=== PATIENT | male | born 1955 | race Caucasian/White ===

== ENCOUNTER 2019-11-15 14:51 | Outpatient (CLI) | payer MEDICARE, SELFPAY ==
[2019-11-15 16:45] LABS: LDL Cholesterol Direct 93 mg/dL
[2019-11-15 17:03] LABS: Alanine Aminotransferase 26 U/L (4-50); Albumin Level 4.1 g/dL (3.5-5.1); Alkaline Phosphatase 116 U/L (38-126); Aspartate Amino Transferase 23 U/L (17-59); Bilirubin,Total 0.3 mg/dL (0.2-1.3); Blood Urea Nitrogen 21 mg/dL (9-20); Calcium 9.5 mg/dL (8.4-10.2); Carbon Dioxide 23 mmol/L (22-30); Chloride 90 mmol/L (98-107); Cholesterol 204 mg/dL (0-200); Estimated Glomerular Filt Rate > 60; Glucose 526 mg/dL (75-110); HDL Direct 25 mg/dL; Potassium 5.5 mmol/L (3.4-5.0); Sodium 132 mmol/L (137-145)
[2019-11-15 17:05] LABS: Prostate Specific Antigen 1.7 ng/mL (< OR = 4.0)
[2019-11-15 17:28] LABS: Triglycerides 637 mg/dL (<150)
== END 2019-11-15 14:52 | disposition home or self-care (01) ==
LOC: ANHWCLAB 14:55
PROVIDERS: PCP Internal Medicine; Visit Provider Internal Medicine
DX: E78.2 Mixed hyperlipidemia (principal); I10 Essential (primary) hypertension; Z12.5 Encounter for screening for malignant neoplasm of prostate; Z79.899 Other long term (current) drug therapy
CPT/HCPCS: 36415; 80053; 80061; 84153; G0103

== ENCOUNTER 2020-03-18 09:50 | Outpatient (CLI) | payer MEDICARE, SELFPAY ==
[2020-03-18 10:33] LABS: Hemoglobin A1C 13.3 % (<5.7)
[2020-03-18 10:36] LABS: Alanine Aminotransferase 31 U/L (4-50); Albumin Level 4.1 g/dL (3.5-5.1); Alkaline Phosphatase 105 U/L (38-126); Aspartate Amino Transferase 28 U/L (17-59); Bilirubin,Total 0.4 mg/dL (0.2-1.3); Blood Urea Nitrogen 14 mg/dL (9-20); Calcium 8.7 mg/dL (8.4-10.2); Carbon Dioxide 28 mmol/L (22-30); Chloride 95 mmol/L (98-107); Cholesterol 149 mg/dL (0-200); Estimated Glomerular Filt Rate > 60; Glucose 341 mg/dL (75-110); HDL Direct 32 mg/dL; Potassium 4.5 mmol/L (3.4-5.0); Sodium 132 mmol/L (137-145); Triglycerides 240 mg/dL (<150)
[2020-03-18 10:48] LABS: LDL Cholesterol Direct 82 mg/dL
[2020-03-18 11:04] LABS: Prostate Specific Antigen 1.7 ng/mL (< OR = 4.0)
[2020-03-18 11:32] LABS: Creatinine Urine 71.9 mg/dL
[2020-03-18 11:38] LABS: MALB Creatinine Ratio 82.2 mg/g (0-30); Microalbumin Urine Random 59.1 mg/L (0-16.7)
== END 2020-03-18 09:51 | disposition home or self-care (01) ==
PROVIDERS: PCP Internal Medicine; Visit Provider Nurse Practitioner
DX: E11.9 Type 2 diabetes mellitus without complications (principal); E78.5 Hyperlipidemia, unspecified; Z12.5 Encounter for screening for malignant neoplasm of prostate
CPT/HCPCS: 36415; 80053; 80061; 82043; 83036; 84153; G0103

== ENCOUNTER 2020-09-18 13:12 | Outpatient (CLI) | payer MEDICARE, SELFPAY ==
[2020-09-18 14:17] LABS: Alanine Aminotransferase 41 U/L (4-50); Albumin Level 4.2 g/dL (3.5-5.1); Alkaline Phosphatase 106 U/L (38-126); Anion Gap 7 mmol/L (8-16); Aspartate Amino Transferase 45 U/L (17-59); Bilirubin,Total 0.5 mg/dL (0.2-1.3); Blood Urea Nitrogen 17 mg/dL (9-20); Calcium 9.3 mg/dL (8.4-10.2); Carbon Dioxide 31 mmol/L (22-30); Chloride 97 mmol/L (98-107); Cholesterol 186 mg/dL (0-200); Estimated Glomerular Filt Rate > 60; Glucose 386 mg/dL (75-110); HDL Direct 29 mg/dL; Potassium 4.9 mmol/L (3.4-5.0); Sodium 135 mmol/L (137-145); Triglycerides 314 mg/dL (<150)
[2020-09-18 14:29] LABS: LDL Cholesterol Direct 115 mg/dL
== END 2020-09-18 13:13 | disposition home or self-care (01) ==
LOC: ANHLAB 13:16
PROVIDERS: PCP Internal Medicine; Visit Provider Internal Medicine
DX: E11.65 Type 2 diabetes mellitus with hyperglycemia (principal); Z79.4 Long term (current) use of insulin; I10 Essential (primary) hypertension; E78.5 Hyperlipidemia, unspecified
CPT/HCPCS: 36415; 80053; 80061

== ENCOUNTER 2021-02-08 15:27 | Emergency (ER) | payer MEDICARE, SELFPAY ==
--- NOTE | ~2021-02-08 | CT_ITS ---
EXAMINATION: CT abdomen pelvis w con DATE: 02/08/2021 18:19 INDICATION: Right upper quadrant abdominal pain TECHNIQUE: Computed tomography (CT) of the abdomen and pelvis was performed with 100 mL Omnipaque-350 intravenous contrast. Automated exposure control and iterative reconstruction technique were employe d. The dose-length product was 1456.73 mGy-cm. COMPARISON: 01/13/2015 FINDINGS: A few small calcified nodules in the right lower lobe consistent with old granulomatous disease. Hear t size is normal. No pericardial or pleural effusion. Edematous wall thickening the distal esophagus consistent with esophagitis. Small calcified gallstone at the dependent aspect of the normal-appearin g gallbladder. Liver, spleen, pancreas, bilateral adrenal glands and kidneys are normal. 2 mm nonobst ructing stone at the lower pole of the right kidney. There is mild scattered colonic diverticulosis w ithout adjacent inflammatory change to suggest diverticulitis. Small bowel and appendix are normal. M arked prostatomegaly. Bladder is normal. No free intraperitoneal gas or fluid. Small fat-containing u mbilical and bilateral inguinal hernias. No pathologically enlarged abdominal or pelvic lymphadenopat hy. Mild scattered degenerative skeletal changes. IMPRESSION: 1. Mild wall thickening in the distal esophagus consistent with esophagitis which could be due to ref lux or other infectious or inflammatory etiologies. 2. Cholelithiasis. 3. Nonobstructing 2 mm right renal cyst. 4. Mild diverticulosis. 5. Small fat-containing umbilical and bilateral inguinal hernias. Reviewed, dictated and finalized at location A. IMPRESSION: 1. Mild wall thickening in the distal esophagus consistent with esophagitis whi ch could be due to reflux or other infectious or inflammatory etiologies. 2. Cholelithiasis. 3. Nonobstructing 2 mm right renal cyst. 4. Mild diverticulosis. 5. Small fat-containing umbilical and bilateral inguinal hernias.
[2021-02-08 15:28] VITALS: BP 175/68; PULSE 87; RESP 17; TEMP 36.3; O2SAT 97
[2021-02-08 16:11] LABS: Basophils Absolute Auto 0.1 K/mm3 (0.0-0.1); Basophils Percent Auto 0.8 % (0.2-1.2); Eosinophils Absolute Auto 0.3 K/mm3 (0-0.3); Eosinophils Percent Auto 3.9 % (0-4.4); Hematocrit 40.1 % (42.0-52.0); Hemoglobin 13.4 g/dL (14.0-18.0); Immature Granulocyte Percent A 1.3 % (0-0.5); Lymphocytes Absolute Auto 1.11 K/mm3 (0.9-3.2); Lymphocytes Percent Auto 14.5 % (18.3-44.2); Mean Corpuscular HGB Conc 33.4 g/dl (32-36); Mean Corpuscular Hemoglobin 32.1 pg (26-34); Mean Corpuscular Volume 95.9 fl (80-100); Mean Platelet Volume 9.7 fl (7.4-10.4); Monocytes Absolute Auto 0.5 K/mm3 (0.1-0.6); Monocytes Percent Auto 6.8 % (2.6-8.5); Neutrophils Absolute Auto 5.6 K/mm3 (1.3-6.7); Neutrophils Percent Auto 72.7 % (45.5-73.1); Platelet Count Result 194 k/mm3 (150-375); Red Blood Count 4.18 M/mm3 (4.6-6.20); Red Cell Distribution Width 14.4 % (11.5-14.5); White Blood Count 7.7 K/mm3 (4.5-10.0)
[2021-02-08 16:14] LABS: Add Urine Microscopic? YES; Appearance Urine Clear (Clear); Bilirubin Urine Negative (Negative); Blood Urine Negative (Negative); Color Urine Straw (Yellow); Glucose Urine UA 3+ mg/dL (Negative); Ketones Urine Negative (Negative); Leukocyte Esterase Ur Negative LEU/UL (Negative); Nitrate Urine Negative (Negative); Protein Urine Negative (Negative); RBC Urine 0-2 /hpf (0-2); Specific Grav Ur 1.024 (1.001-1.035); Squamous Epithelial Cell Urine Rare /hpf (Few); Urobilinogen Urine Negative mg/dL (<2.0); WBC Urine 0-3 /hpf
[2021-02-08 16:20] LABS: Alanine Aminotransferase 26 U/L (4-50); Albumin Level 4.3 g/dL (3.5-5.1); Alkaline Phosphatase 139 U/L (38-126); Anion Gap 4 mmol/L (8-16); Aspartate Amino Transferase 29 U/L (17-59); Bilirubin,Total 0.3 mg/dL (0.2-1.3); Blood Urea Nitrogen 18 mg/dL (9-20); Calcium 9.6 mg/dL (8.4-10.2); Carbon Dioxide 31 mmol/L (22-30); Chloride 97 mmol/L (98-107); Estimated CRCL calculation 102 ml/min; Estimated Glomerular Filt Rate > 60; Glucose 378 mg/dL (75-110); Lipase 90 U/L (23-300); Potassium 4.5 mmol/L (3.4-5.0); Sodium 132 mmol/L (137-145)
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
[2021-02-08 17:37] LABS: Beta-Hydroxybutyrate/Acetoacetate 0.24 mmol/L (0.02-0.27)
[2021-02-08 17:40] VITALS: BP 158/71; PULSE 72; RESP 18; TEMP 36.7; O2SAT 95
[2021-02-08] MEDS: MORPHINE SULFATE (*CRX) 4 MG/ML INJ IV PUSH (17:43)
[2021-02-08] MEDS: SODIUM CHLORIDE 0.9% IV 1,000 ML 999 ML IV CONT (17:43)
[2021-02-08] MEDS: INSULIN HUMAN REGULAR (*BKC) 100 UNITS/ML 8 UNITS SUB-Q (17:47)
[2021-02-08 18:34] VITALS: BP 136/71; PULSE 67; RESP 18; TEMP 36.4; O2SAT 95
[2021-02-08 19:00] VITALS: O2SAT 94
[2021-02-08 19:11] VITALS: BP 154/70; O2SAT 96
[2021-02-08 19:41] LABS: Glucose Point of Care 226 (65-105)
== END 2021-02-08 20:17 | disposition home or self-care (01) ==
PROVIDERS: Emergency Medicine; Emergency Provider Nurse Practitioner; PCP Internal Medicine
DX: N28.1 Cyst of kidney, acquired (principal); E11.9 Type 2 diabetes mellitus without complications; K57.90 Diverticulosis of intestine, part unspecified, without perforation or abscess without bleeding; K80.20 Calculus of gallbladder without cholecystitis without obstruction; K42.9 Umbilical hernia without obstruction or gangrene; K40.20 Bilateral inguinal hernia, without obstruction or gangrene, not specified as recurrent; E78.5 Hyperlipidemia, unspecified; I10 Essential (primary) hypertension; G47.33 Obstructive sleep apnea (adult) (pediatric); J45.909 Unspecified asthma, uncomplicated; Z79.4 Long term (current) use of insulin; Z79.82 Long term (current) use of aspirin
CPT/HCPCS: 36415; 74177; 80053; 81001; 82010; 82948; 83690; 85025; 96361; 96372; 96374; 99284; J1815; J2270; J7030; Q9967

== ENCOUNTER 2021-02-25 08:42 | Outpatient (CLI) | payer MEDICARE, SELFPAY ==
[2021-02-25 09:11] LABS: Basophils Absolute Auto 0.1 K/mm3 (0.0-0.1); Eosinophils Absolute Auto 0.5 K/mm3 (0-0.3); Eosinophils Percent Auto 6.2 % (0-4.4); Hematocrit 39.3 % (42.0-52.0); Hemoglobin 12.8 g/dL (14.0-18.0); Immature Granulocyte Absolute 0.13 K/mm3 (0.00-0.031); Immature Granulocyte Percent A 1.5 % (0-0.5); Lymphocytes Absolute Auto 1.41 K/mm3 (0.9-3.2); Lymphocytes Percent Auto 16.8 % (18.3-44.2); Mean Corpuscular HGB Conc 32.6 g/dl (32-36); Mean Corpuscular Hemoglobin 31.8 pg (26-34); Mean Corpuscular Volume 97.5 fl (80-100); Mean Platelet Volume 9.1 fl (7.4-10.4); Monocytes Absolute Auto 0.7 K/mm3 (0.1-0.6); Monocytes Percent Auto 8.3 % (2.6-8.5); Neutrophils Absolute Auto 5.6 K/mm3 (1.3-6.7); Neutrophils Percent Auto 66.2 % (45.5-73.1); Platelet Count Result 186 k/mm3 (150-375); Red Blood Count 4.03 M/mm3 (4.6-6.20); Red Cell Distribution Width 14.5 % (11.5-14.5); White Blood Count 8.4 K/mm3 (4.5-10.0)
[2021-02-25 09:20] LABS: Alanine Aminotransferase 28 U/L (4-50); Albumin Level 4.2 g/dL (3.5-5.1); Alkaline Phosphatase 83 U/L (38-126); Anion Gap 8 mmol/L (8-16); Aspartate Amino Transferase 41 U/L (17-59); Bilirubin,Total 0.3 mg/dL (0.2-1.3); Blood Urea Nitrogen 18 mg/dL (9-20); Calcium 9.8 mg/dL (8.4-10.2); Carbon Dioxide 32 mmol/L (22-30); Chloride 98 mmol/L (98-107); Estimated Glomerular Filt Rate > 60; Glucose 160 mg/dL (75-110); Lipase 67 U/L (23-300); Sodium 138 mmol/L (137-145)
[2021-02-28 17:03] LABS: H pylori Ag Stool Not Detected (Not Detected)
== END 2021-02-25 08:43 | disposition home or self-care (01) ==
PROVIDERS: PCP Internal Medicine; Visit Provider Surgery
DX: K80.20 Calculus of gallbladder without cholecystitis without obstruction (principal)
CPT/HCPCS: 36415; 80053; 83690; 85025; 87338

== ENCOUNTER → 2021-02-27 09:33 | Outpatient (CLI) | payer MEDICARE, SELFPAY ==
--- NOTE | ~2021-02-27 | US_ITS ---
US abdomen limited DATE: 02/27/2021 09:58 INDICATION: Right upper quadrant abdominal pain TECHNIQUE: Real-time imaging of liver, pancreas, gallbladder areas COMPARISON: 02/08/2021 CT abdomen pelvis FINDINGS: There is limited visualization of the pancreas due to interference from bowel gas. No hepatic space-occupying mass lesion is evident. Normal hepatopedal portal venous flow direction. Small mobile dependent filling defects of the gallbladder consistent with cholelithiasis. Negative so nographic Noriega's sign. The common bile duct measures 4 mm, normal. IMPRESSION: Cholelithiasis Reviewed, dictated and finalized at [facility]. Reviewed, dictated and finalized at location B. IMPRESSION: Cholelithiasis
== END ==
PROVIDERS: PCP Internal Medicine; Visit Provider Surgery
DX: R10.11 Right upper quadrant pain (principal); K80.20 Calculus of gallbladder without cholecystitis without obstruction
CPT/HCPCS: 76705

== ENCOUNTER 2021-03-17 14:40 | Outpatient (CLI) | payer MEDICARE, SELFPAY ==
[2021-03-21 03:54] LABS: Fructosamine 260 umol/L (205-285)
== END 2021-03-17 14:41 | disposition home or self-care (01) ==
PROVIDERS: PCP Internal Medicine; Visit Provider Internal Medicine Endocrinology, Diabetes & Metabolism
DX: E11.9 Type 2 diabetes mellitus without complications (principal)
CPT/HCPCS: 36415; 82985

== ENCOUNTER 2021-03-28 10:30 | Outpatient (CLI) | payer MEDICARE, SELFPAY ==
[2021-03-28 12:54] LABS: LDL Cholesterol Direct 63 mg/dL
[2021-03-28 13:02] LABS: Alanine Aminotransferase 25 U/L (4-50); Albumin Level 4.7 g/dL (3.5-5.1); Alkaline Phosphatase 75 U/L (38-126); Anion Gap 13 mmol/L (8-16); Aspartate Amino Transferase 35 U/L (17-59); Bilirubin,Total 0.5 mg/dL (0.2-1.3); Blood Urea Nitrogen 17 mg/dL (9-20); Calcium 10.1 mg/dL (8.4-10.2); Carbon Dioxide 28 mmol/L (22-30); Chloride 102 mmol/L (98-107); Cholesterol 134 mg/dL (0-200); Estimated Glomerular Filt Rate > 60; Glucose 39 mg/dL (75-110); HDL Direct 38 mg/dL; Sodium 143 mmol/L (137-145); Triglycerides 71 mg/dL (<150)
[2021-03-28 13:13] LABS: Prostate Specific Antigen 1.8 ng/mL (< OR = 4.0)
== END 2021-03-28 10:31 | disposition home or self-care (01) ==
LOC: ANHLAB 10:34
PROVIDERS: PCP Internal Medicine; Visit Provider Internal Medicine
DX: E11.65 Type 2 diabetes mellitus with hyperglycemia (principal); Z79.4 Long term (current) use of insulin; I10 Essential (primary) hypertension; E78.5 Hyperlipidemia, unspecified; Z12.5 Encounter for screening for malignant neoplasm of prostate
CPT/HCPCS: 36415; 80053; 80061; 84153; G0103

== ENCOUNTER 2021-04-03 08:04 | Outpatient (CLI) | payer MEDICARE, SELFPAY ==
--- NOTE | ~2021-04-03 | NM_ITS ---
EXAMINATION: NM brigette stress w perfusion DATE: 04/03/2021 10:29 CDT INDICATION: Preop examination. History of diabetes with hyperglycemia and obesity. TECHNIQUE: Rest images were obtained following intravenous administration of 11.4 mCi Tc99m tetrofosm in (Myoview). The patient was infused intravenously with Lexiscan (regadenoson). Then, 33.3 mCi Tc99m tetrofosmin (Myoview) was administered intravenously, and stress images were obtained. Data was ceasar nstructed into short axis and horizontal and vertical long axis SPECT images. Gated SPECT images were also obtained. COMPARISON: None. FINDINGS: There is no definite reversible or fixed perfusion abnormality to suggest ischemia or infar ction. There is no segmental wall motion abnormality. Left ventricular ejection fraction measures 6 9%. IMPRESSION: 1. No definite ischemia or infarct. 2. Normal left ventricular ejection fraction measuring 69%. Reviewed, dictated and finalized at location B.
--- NOTE | 2021-04-03 08:09 | EST_ITS ---
Patient Info Name: Karan Flores Age: 65 years : 1955 Gender: Male Ht: 69 in Wt: 325 lbs BSA: 2.76 m2 Exam Date: 04/03/2021 9:20 AM Exam Location: [facility] Stress Patient Status: Outpatient Admit Date: 04/03/2021 Staff Ordering Physician: Mani Bush DO Attending Provider: Mani Bush DO Exercise Technologist: Ingrid Coello RDCS Exercise Physician: Lm Kirkland DO Exam Type: CA stress brigette w NM Study Info Indications E11.65 - Type 2 diabetes mellitus with hyperglycemia A regadenoson stress test was performed. Summary 1. 1. Negative lexiscan stress test for ischemic ST changes by ECG criteria. 2. 2. Stable hemodynamics throughout the test. 3. 3. Nuclear scan to follow and will be reported separately. Please correlate with it. 4. 4. Patient informed of the above results. Protocol: Lexiscan Stress ECG Details Stage: REST Duration (min): 3 min : 5 sec HR (bpm): 72 SBP (mmHg): 139 DBP (mmHg): 63 Stage: REST Duration (min): 5 min : 15 sec HR (bpm): 72 SBP (mmHg): 139 DBP (mmHg): 63 Stage: STAGE 1 Duration (min): 0 min : 59 sec HR (bpm): 91 SBP (mmHg): 132 DBP (mmHg): 63 Stage: RECOVERY Duration (min): 1 min : 0 sec HR (bpm): 90 SBP (mmHg): 137 DBP (mmHg): 49 Stage: RECOVERY Duration (min): 2 min : 0 sec HR (bpm): 83 SBP (mmHg): 137 DBP (mmHg): 49 Stage: RECOVERY Duration (min): 3 min : 0 sec HR (bpm): 87 SBP (mmHg): 144 DBP (mmHg): 54 Stage: RECOVERY Duration (min): 3 min : 4 sec HR (bpm): 87 SBP (mmHg): 144 DBP (mmHg): 54 Rest HR: 72 bpm Peak HR: 96 bpm Rest Sys BP: 139 mmHg Peak Sys BP: 144 mmHg Max Pred HR: 155 bpm % Max Pred HR: 62 % Target HR: 132 bpm Max RPP: 13,824 bpm*mmHg Termination Reason: Completed protocol Cardiac Symptoms: Shortness of breath, Nausea Total Time: 1 min : [address] BP: [address] BP: 54 mmHg Total Dose: 0.4 mg Resting ECG Sinus rhythm, IRBBB. Stress ECG No ST changes. Arrhythmias None. Report Signatures
== END 2021-04-03 08:05 | disposition home or self-care (01) ==
PROVIDERS: PCP Internal Medicine; Visit Provider Internal Medicine
DX: E11.65 Type 2 diabetes mellitus with hyperglycemia (principal); I10 Essential (primary) hypertension; Z79.4 Long term (current) use of insulin; Z01.810 Encounter for preprocedural cardiovascular examination
CPT/HCPCS: 78452; 93017; A9502; J2785

== ENCOUNTER 2021-04-21 16:36 | Outpatient (CLI) | payer MEDICARE, SELFPAY ==
[2021-04-21 17:40] LABS: Alanine Aminotransferase 30 U/L (4-50); Albumin Level 4.5 g/dL (3.5-5.1); Alkaline Phosphatase 84 U/L (38-126); Amylase 63 U/L (30-110); Anion Gap 10 mmol/L (8-16); Aspartate Amino Transferase 40 U/L (17-59); Bilirubin,Total 0.4 mg/dL (0.2-1.3); Blood Urea Nitrogen 15 mg/dL (9-20); Calcium 9.7 mg/dL (8.4-10.2); Carbon Dioxide 28 mmol/L (22-30); Chloride 100 mmol/L (98-107); Estimated Glomerular Filt Rate > 60; Glucose 195 mg/dL (75-110); Lipase 98 U/L (23-300); Potassium 4.7 mmol/L (3.4-5.0); Sodium 138 mmol/L (137-145)
== END 2021-04-21 16:37 | disposition home or self-care (01) ==
LOC: ANHLAB 16:43
PROVIDERS: PCP Internal Medicine; Visit Provider Surgery
DX: K80.20 Calculus of gallbladder without cholecystitis without obstruction (principal); Z01.818 Encounter for other preprocedural examination
CPT/HCPCS: 36415; 80053; 82150; 82248; 83690

== ENCOUNTER 2021-04-23 01:32 | Day surgery (SDC) | payer MEDICARE, SELFPAY ==
[2021-04-21 12:57] VITALS: BMI 46.5
[2021-04-23] VITALS (11 sets, daily range): BP systolic 123–152; BP diastolic 49–88; PULSE 69–79; RESP 18–20; TEMP 36.6; O2SAT 92–98
[2021-04-23] MEDS: LACTATED RINGERS 1,000 ML 30 ML IV CONT ×2 (11:40→15:00)
[2021-04-23] MEDS: KETOROLAC 15 MG/ML VIAL (*BKC) IV PUSH (11:51)
--- NOTE | 2021-04-23 11:54 | WPDANESEPPF ---
Anes - Initial Pre Proc Eval Procedure: Operation Date: 04/23/21 12:00 Proposed Procedures p Laparoscopic Cholecystectomy, Possible Intra Operative Cholangiogram, Possible Open - Yamil Adan MD Date/Time: 04/23/21 11:54 Surgeon: Yamil Adan MD Pre Op Diagnosis: cholelithiasis Patient Data Age: 65 Gender: M Height: 1.75 m Weight: 143 kg Allergies Allergy/AdvReac Type Severity Reaction Status Date / Time amoxicillin [From Augmentin] Allergy Mild Hives Verified 04/23/21 10:39 clavulanic acid Allergy Mild Hives Verified 04/23/21 10:39 [From Augmentin] ramipril [From Altace] Allergy Mild Hives Verified 04/23/21 10:39 Home Medications Medication Instructions Recorded Confirmed Type aspirin 325 mg tablet 325 mg PO DAILY 11/19/19 04/21/21 History fexofenadine-pseudoephedrine ER 1 tablet PO PRN PRN 11/19/19 04/23/21 History 180 mg-240 mg tablet,ext.release 24 hr magnesium oxide 400 mg (241.3 mg 400 mg PO DAILY 11/19/19 04/21/21 History magnesium) tablet multivitamin 1 tablet PO DAILY 11/19/19 04/21/21 History albuterol sulfate 90 mcg/actuation 2 inhalation INHALATION Q4-6H PRN 11/26/19 04/23/21 History aerosol inhaler gm cetirizine 10 mg capsule 10 mg PO DAILY 11/26/19 04/21/21 History omega-3 fatty acids-fish oil 360 2 cap PO BID cap 11/26/19 04/21/21 History mg-1,200 mg capsule potassium gluconate 595 mg (99 mg) 595 mg PO BID tablet 11/26/19 04/21/21 History tablet calcium carbonate 600 mg (1,500 1 tablet PO BID 12/27/19 04/21/21 History mg)-vitamin D3 200 unit tablet blood sugar diagnostic #400 each 08/04/20 03/31/21 Rx blood-glucose meter #1 ea 08/04/20 03/31/21 History insulin lispro 100 unit/mL See Rx Instructions .ROUTE .COMPLEX 08/04/20 04/21/21 History subcutaneous solution insulin syringe-needle U-100 0.5 #400 ea 08/04/20 03/31/21 Rx mL 31 gauge x 5/16 insulin syringe-needle U-100 1 mL #10 each 08/04/20 03/31/21 History 31 gauge x 02/22 metformin 1,000 mg tablet See Rx Instructions .ROUTE 09/16/20 04/21/21 Rx .COMPLEX #180 tablet omeprazole 40 mg capsule,delayed See Rx Instructions .ROUTE 09/16/20 04/21/21 Rx release .COMPLEX #90 cap lisinopril 10 mg tablet 10 mg PO DAILY #90 tablet 01/12/21 04/21/21 Rx meclizine 25 mg tablet See Rx Instructions .ROUTE 01/12/21 04/23/21 Rx .COMPLEX #90 tablet mecobalamin-levomefolate 1 tablet PO BID #60 tablet 01/13/21 04/21/21 Rx calcium-pyridoxal phos 3 mg-35 mg-2 mg tablet acetaminophen 300 mg-codeine 60 mg 1 tablet PO QSHIFT PRN 02/18/21 04/23/21 History tablet atorvastatin 80 mg tablet 40 mg PO DAILY tablet 02/18/21 04/21/21 History naproxen 250 mg tablet 250 mg PO BID PRN 03/31/21 04/23/21 History diazepam 2 mg tablet 2 mg PO QID #120 tablet 04/20/21 04/23/21 Rx insulin degludec [Tresiba U-100 75 unit SUB-Q QPM 04/21/21 04/23/21 History Insulin] Patient hx anesthesia problems: none Family hx anesthesia problems: none PMFSH Past Medical History Medical History (Updated 03/31/21 @ 09:36 by Milo Adan APRN) Chronic low back pain History of blood transfusion 1977 Hyperlipidemia Hypertension Kidney stones CHITRA on CPAP Stroke 16yrs ago Type 2 diabetes mellitus without complications Surgical History Surgical History (Updated 02/18/21 @ 14:54 by Nely Anthony CMA) H/O exploratory laparotomy H/O left inguinal hernia repair History of nephrolithotomy with removal of calculi Family History Family History (Updated 02/18/21 @ 14:55 by Nely Anthony CMA) Father Family history of diabetes mellitus in first degree relative Family history of heart disease in male family member before age 55 Cerebrovascular accident Mother Family history of emphysema Sibling Diabetes mellitus Hypertension Cerebrovascular accident Depression Grandparent Diabetes mellitus Other Cancer Other Asthma Family history of arthritis Family history of blood dyscrasia F
[2021-04-23 12:01] LABS: Glucose Point of Care 104 mg/dl (65-105)
--- NOTE | 2021-04-23 12:14 | WPDHPUPDATE1 ---
History and Physical Update Update Date/Time: 04/23/21 12:14 History and Physical has been reviewed, including an updated exam of the patient. There are changes in the patient's condition. Pt had a cardiac stress test that showed no ischemic changes. Risks, benefits, and alternatives have been discussed and questions answered. Patient agrees to proceed with procedure.
[2021-04-23] MEDS: ceFAZolin 3 GM/D5W 100 ML 100 ML IVPB (12:27)
[2021-04-23] MEDS: BUPIVACAINE/EPINEPHRINE 0.5% 30 ML VIAL INFILTRATE (12:57)
--- NOTE | 2021-04-23 15:22 | W.PM.PROC2 ---
Procedure Note - Detailed Date of Procedure 04/23/21 Pre-op Diagnosis cholelithiasis Post-op Diagnosis same Procedure Performed Laproscopic Cholecystectomy Surgeon Yamil Adan MD Cloth Washer Operator Amee ALMEIDA.OR first assistant Anesthesia general Indications Patient has had longstanding cholelithiasis but now in view of his diabetes and some symptoms it was recommended that he consider having cholecystectomy. Findings A long distended gallbladder without signs of inflammation. There were significant omental adhesions starting a [address] down from the top of his gallbladder all the way to the triangle of Calot. Description of Procedure Patient was seen preoperatively in the holding area and risks, benefits and alternatives confirmed. Patient was taken to the operating room and general anesthesia was induced. A time out was then preformed with the surgery team confirming patient and site of surgery. The abdomen was prepped and draped in the usual sterile fashion. Incision was made just above the umbilicus with an 11 blade knife. I placed 2 stay sutures of O- Vicryl on either side of the mid-line fascia beneath the umbilicus and was then able to slide in the Clay cannula through the fascial defect into the peritoneum. First under low flow and then under high flow the abdomen was insufflated with carbon dioxide never exceeding a pressure of 14. Three 5 mm trocars were then introduced under direct vision. The following trocars were introduced under direct vision: a 5 mm in the epigastrium and two 5 mm trocars along the right costal margin laterally in the subcostal area. There were significant omental adhesions to the underside of the gallbladder. These were taken down with blunt and sharp dissection using some Bovie cautery for hemostasis. We were able to dissect this completely away from the neck of the gallbladder. I did get a small hole in the GB wall at about the junction of the top 3rd and the other 2/3 rd's of the gallbladder. We moved our retracting grasper to this site to keep the bile from leaking from the gallbladder through the rest of the case. This seemed to work well as we dissected out the gallbladder and the triangle of Calot. I then carefully used the L-shaped cautery and the [place] dissector to dissect out the triangle of Calot. I then I was able to dissect out both the cystic duct and cystic artery and identify a window of safety. The gall bladder was grasped and the cystic duct and artery were dissected free and clipped with an 5 mm endo-clip recording engineer. The cystic duct and artery were clipped with use of 2 clips on the patient's side 1 on the gallbladder side utilizing a 5 mm endoclip-recording engineer. The cystic duct was then transected. The cystic artery was also transected at this point. The gall bladder was removed using electrocautery and then removed from the abdomen using an endobag. If we replaced the trocar at the umbilicus site checked for hemostasis again and when this was assured and we suctioned away all the fluid around the liver I decided to use a 1. Vicryl to close the fascia at the umbilical level trocar site using a Mark Sherman cone. Therefore, we placed the Mark Sherman cone after removing the Clay cannula at the umbilical site. Watching from the 5 mm trocars in the upper abdomen we then carefully passed the #1. Vicryl with a suture Passer and I pulled this up and tied it. All retracting to tie this I could see that we could see the fascia at the level of the supraumbilical area and so then I placed another #1 Vicryl suture externally as noted below. The 5 mm trocars were removed visualizing hemostasis and the remaining gas evacuated. The large trocar site at the umbilicus was closed with use of the 2 stay sutures of 0 Vicryl mentioned above and also a simple # 1-Vicryl suture at the supraumbilical site. The 2 stay sutures mentioned above on either side of the fascia were also tied together to help appr
[2021-04-23 15:34] LABS: Glucose Point of Care 170 mg/dl (65-105)
[2021-04-23] MEDS: diphenhydrAMINE HCl INJ 50 MG/ML VIAL 25 MG IV PUSH (15:41)
[2021-04-23] MEDS: SCOPOLAMINE 1.5 MG PATCH TRANSDERM (15:42)
== END 2021-04-23 18:08 | disposition home or self-care (01) ==
PROVIDERS: PCP Internal Medicine; Visit Provider Surgery
PROC: 0FT44ZZ Resection of Gallbladder, Percutaneous Endoscopic Approach (ICD-10-PCS; CPT 47562; principal; 2021-04-23 12:00)
DX: K80.20 Calculus of gallbladder without cholecystitis without obstruction (principal); E11.9 Type 2 diabetes mellitus without complications; I10 Essential (primary) hypertension; E78.5 Hyperlipidemia, unspecified; G47.33 Obstructive sleep apnea (adult) (pediatric); Z86.73 Personal history of transient ischemic attack (TIA), and cerebral infarction without residual deficits; Z87.891 Personal history of nicotine dependence; E66.01 Morbid (severe) obesity due to excess calories; Z68.42 Body mass index [BMI] 45.0-49.9, adult; Z79.82 Long term (current) use of aspirin; Z79.51 Long term (current) use of inhaled steroids; Z79.4 Long term (current) use of insulin; Z79.84 Long term (current) use of oral hypoglycemic drugs
CPT/HCPCS: 47562; 36415; 78452; 80053; 82150; 82248; 82948; 83690; 88304; 93017; A9270; A9502; J0330; J0690; J1100; J1170; J1200; J1885; J2704; J2710; J2785; J3010; J7120

== ENCOUNTER 2021-06-23 17:10 | Emergency (ER) | payer MEDICARE, SELFPAY ==
--- NOTE | ~2021-06-23 | XR_ITS ---
XR wrist LT min 3V DATE: 06/23/2021 17:38 INDICATION: Left lateral wrist pain for 2 weeks, of uncertain etiology TECHNIQUE: 4 views COMPARISON: None FINDINGS: No fracture or dislocation, periosteal reaction or bone destruction, chondrocalcinosis or e rosive change is evident. Small benign-appearing cysts of the carpal bones. IMPRESSION: No acute abnormality Reviewed, dictated and finalized at location A. IMPRESSION: No acute abnormality
[2021-06-23 17:21] VITALS: BP 143/57; PULSE 77; RESP 16; TEMP 36.8; O2SAT 97
--- NOTE | 2021-06-23 17:52 | ED.UPPEXIN ---
HPI - Extremity Injury (Upper) General Chief Complaint: Extremity Injury, Upper Stated Complaint: Left wrist Pain Time Seen by Provider: 06/23/21 17:50 Source: patient and RN notes reviewed Mode of arrival: ambulatory Limitations: no limitations History of Present Illness HPI narrative: 65-year-old male presents to the [facility] with complaints of left wrist pain. States has been going on for a couple of days. Had been applying an Owen wrap along with a salve. Took some ibuprofen today with minimal to no relief. States he went to balance himself the other day and stand up when he felt a pop in the radial aspect left wrist. No bruising or swelling noted. Pain with movement. No snuffbox tenderness Related Data Home Medications Medication Instructions Recorded Confirmed aspirin 325 mg tablet 325 mg PO DAILY 11/19/19 06/23/21 fexofenadine-pseudoephedrine ER 1 tablet PO PRN PRN 11/19/19 06/23/21 180 mg-240 mg tablet,ext.release 24 hr magnesium oxide 400 mg (241.3 mg 400 mg PO DAILY 11/19/19 06/23/21 magnesium) tablet multivitamin 1 tablet PO DAILY 11/19/19 06/23/21 albuterol sulfate 90 mcg/actuation 2 inhalation INHALATION Q4-6H PRN 11/26/19 06/23/21 aerosol inhaler gm cetirizine 10 mg capsule 10 mg PO DAILY 11/26/19 06/23/21 omega-3 fatty acids-fish oil 360 2 cap PO BID cap 11/26/19 06/23/21 mg-1,200 mg capsule potassium gluconate 595 mg (99 mg) 595 mg PO BID tablet 11/26/19 06/23/21 tablet calcium carbonate 600 mg (1,500 1 tablet PO BID 12/27/19 06/23/21 mg)-vitamin D3 200 unit tablet blood-glucose meter #1 ea 08/04/20 06/23/21 insulin lispro 100 unit/mL See Rx Instructions .ROUTE .COMPLEX 08/04/20 06/23/21 subcutaneous solution atorvastatin 80 mg tablet 40 mg PO DAILY tablet 02/18/21 06/23/21 Tresiba U-100 Insulin 75 unit SUB-Q QPM 04/21/21 06/23/21 Allergies Allergy/AdvReac Type Severity Reaction Status Date / Time amoxicillin [From Augmentin] Allergy Mild Hives Verified 06/23/21 17:48 clavulanic acid Allergy Mild Hives Verified 06/23/21 17:48 [From Augmentin] ramipril [From Altace] Allergy Mild Hives Verified 06/23/21 17:48 Review of Systems Review of Systems: All systems reviewed & are unremarkable except as noted in HPI and below Constitutional: Constitutional: Reports no additional constitutional complaints Eyes: Eyes: Reports no additional eye complaints ENT: Reports system reviewed and no additional complaints, except as documented Cardiovascular: Cardiovascular: Reports no additional cardiovascular complaints Respiratory: Respiratory: Reports no additional respiratory complaints Musculoskeletal: Musculoskeletal: Reports as per HPI and Reports arthralgias (Left wrist) Integumentary/Breasts: Skin/Breast: Reports system reviewed and no additional complaints, except as docu Neurologic: Reports system reviewed and no additional complaints, except as documented Psychiatric: Psychiatric: Reports no additional psychiatric complaints Allergic/Immunologic: Allergic/Immunologic: Reports no additional allergic/immunologic complaints PMFSH Past Medical History Medical History Chronic low back pain History of blood transfusion 1977 Hyperlipidemia Hypertension Kidney stones CHITRA on CPAP Stroke 16yrs ago Type 2 diabetes mellitus without complications Surgical History Surgical History H/O exploratory laparotomy H/O left inguinal hernia repair History of nephrolithotomy with removal of calculi Family History Family History Father Family history of diabetes mellitus in first degree relative Family history of heart disease in male family member before age 55 Cerebrovascular accident Mother Family history of emphysema Sibling Diabetes mellitus Hypertension Cerebrovascular accident Depression Grandparent Diabetes mellitu
== END 2021-06-23 18:25 | disposition home or self-care (01) ==
PROVIDERS: Emergency Provider Nurse Practitioner; PCP Internal Medicine
DX: M25.532 Pain in left wrist (principal); F17.290 Nicotine dependence, other tobacco product, uncomplicated; E78.5 Hyperlipidemia, unspecified; I10 Essential (primary) hypertension; G47.33 Obstructive sleep apnea (adult) (pediatric); E11.9 Type 2 diabetes mellitus without complications; Z86.73 Personal history of transient ischemic attack (TIA), and cerebral infarction without residual deficits
CPT/HCPCS: 73110; 99213; G0463

== ENCOUNTER → 2021-07-02 09:59 | Outpatient (REF) | payer MEDICARE, SELFPAY | LOC: ANHLAB 09:59 | PROVIDERS: PCP Internal Medicine; Visit Provider Nurse Practitioner | DX: C44.611 Basal cell carcinoma of skin of unspecified upper limb, including shoulder (principal) | CPT/HCPCS: 88305 ==

== ENCOUNTER → 2021-08-31 10:37 | Outpatient (REF) | payer MEDICARE, SELFPAY | LOC: ANHLAB 10:37 | PROVIDERS: PCP Internal Medicine; Visit Provider Nurse Practitioner | DX: C44.612 Basal cell carcinoma of skin of right upper limb, including shoulder (principal) | CPT/HCPCS: 88305; 88331 ==

== ENCOUNTER 2021-09-24 18:44 | Emergency (ER) | payer MEDICARE, SELFPAY ==
--- NOTE | ~2021-09-24 | XR_ITS ---
EXAMINATION: XR chest 2V 09/24/2021 19:23 INDICATION: Cough PROCEDURE: 2 view chest COMPARISON: 12/16/2011 FINDINGS: The lungs are clear. The cardiomediastinal silhouette is within normal limits. There are no pleural effusions. There is no pneumothorax suspected. IMPRESSION: 1: NO ACUTE CARDIOPULMONARY DISEASE. Reviewed, dictated and finalized at location A. NOMY SUPERVISOR
[2021-09-24 18:55] VITALS: BP 155/61; PULSE 78; RESP 16; TEMP 36.6; O2SAT 98
--- NOTE | 2021-09-24 19:27 | ED.GENADULT ---
HPI - General Adult General Chief complaint: Upper Respiratory Infection Stated complaint: Cough Source: patient Mode of arrival: ambulatory Limitations: no limitations History of Present Illness HPI narrative: Patient is a 65-year-old male who presents to the urgent care via POV for evaluation of a dry cough that began 4 days ago. Additionally, he reports myalgias, sleep difficulty, and fatigue. He also reports a throbbing rib cage . He also states that his cough is a wrenching cough to the point of heaving . No relief with Delsym or Tussionex. Denies alleviating factors. He states his cough worsens everything . He is vaccinated against Covid and also received Covid booster. He is also vaccinated against influenza. History of bronchitis. Last episode of bronchitis was 1980s. Denies present tobacco use. He states he smoked cigarettes in the past although quit 48 years ago. Related Data Home Medications Medication Instructions Recorded Confirmed aspirin 325 mg tablet 325 mg PO DAILY 11/19/19 06/23/21 fexofenadine-pseudoephedrine ER 1 tablet PO PRN PRN 11/19/19 06/23/21 180 mg-240 mg tablet,ext.release 24 hr magnesium oxide 400 mg (241.3 mg 400 mg PO DAILY 11/19/19 06/23/21 magnesium) tablet multivitamin 1 tablet PO DAILY 11/19/19 06/23/21 albuterol sulfate 90 mcg/actuation 2 inhalation INHALATION Q4-6H PRN 11/26/19 06/23/21 aerosol inhaler gm cetirizine 10 mg capsule 10 mg PO DAILY 11/26/19 06/23/21 omega-3 fatty acids-fish oil 360 2 cap PO BID cap 11/26/19 06/23/21 mg-1,200 mg capsule potassium gluconate 595 mg (99 mg) 595 mg PO BID tablet 11/26/19 06/23/21 tablet calcium carbonate 600 mg-vitamin 1 tablet PO BID 12/27/19 06/23/21 D3 5 mcg (200 unit) tablet blood-glucose meter #1 ea 08/04/20 06/23/21 Allergies Allergy/AdvReac Type Severity Reaction Status Date / Time amoxicillin [From Augmentin] Allergy Mild Hives Verified 09/24/21 19:06 clavulanic acid Allergy Mild Hives Verified 09/24/21 19:06 [From Augmentin] ramipril [From Altace] Allergy Mild Hives Verified 09/24/21 19:06 Review of Systems Review of Systems: Denies history of COPD, asthma, and pneumonia. Pertinent negatives: fever, sweats, chills, change in appetite, skin color changes, headache, nasal congestion/discharge, dizziness, lymphadenopathy, sinus problems, ear pain/drainage, chest pain, heart murmurs, heart palpitations, shortness of breath, wheezing, cyanosis, hemoptysis, hoarseness, orthopnea, pleuritic pain, nausea, vomiting, diarrhea. [facility] Past Medical History Medical History Chronic low back pain History of blood transfusion 1977 Hyperlipidemia Hypertension Kidney stones CHITRA on CPAP Stroke 16yrs ago Type 2 diabetes mellitus without complications Surgical History Surgical History H/O exploratory laparotomy H/O left inguinal hernia repair History of nephrolithotomy with removal of calculi Family History Family History Father Family history of diabetes mellitus in first degree relative Family history of heart disease in male family member before age 55 Cerebrovascular accident Mother Family history of emphysema Sibling Diabetes mellitus Hypertension Cerebrovascular accident Depression Grandparent Diabetes mellitus Other Cancer Other Asthma Family history of arthritis Family history of blood dyscrasia Family history of cardiovascular disease Family history of cataracts Family history of congestive heart failure Family history of coronary artery disease Family history of hepatitis Family history of mental disorder Family history of migraine headaches Family history of obesity Family history of osteoarthritis Social History Social History (Reviewed 09/24/21 @ 19:32 by Les Mckee
== END 2021-09-24 20:00 | disposition home or self-care (01) ==
PROVIDERS: Emergency Provider Nurse Practitioner Family; PCP Internal Medicine
DX: J06.9 Acute upper respiratory infection, unspecified (principal); E78.5 Hyperlipidemia, unspecified; I10 Essential (primary) hypertension; E11.9 Type 2 diabetes mellitus without complications; Z87.891 Personal history of nicotine dependence; Z79.82 Long term (current) use of aspirin; Z20.822 Contact with and (suspected) exposure to COVID-19
CPT/HCPCS: 71046; 87426; 87804; 99213; C9803; G0463

== ENCOUNTER 2021-10-08 10:54 | Outpatient (CLI) | payer MEDICARE, SELFPAY ==
[2021-10-08 11:51] LABS: Alanine Aminotransferase 32 U/L (4-50); Albumin Level 4.4 g/dL (3.5-5.1); Alkaline Phosphatase 101 U/L (38-126); Anion Gap 9 mmol/L (8-16); Aspartate Amino Transferase 36 U/L (17-59); Bilirubin,Total 0.4 mg/dL (0.2-1.3); Blood Urea Nitrogen 15 mg/dL (9-20); Calcium 9.4 mg/dL (8.4-10.2); Carbon Dioxide 28 mmol/L (22-30); Chloride 99 mmol/L (98-107); Cholesterol 160 mg/dL (0-200); Estimated Glomerular Filt Rate > 60; Glucose 178 mg/dL (65-110); HDL Direct 29 mg/dL; Potassium 4.7 mmol/L (3.4-5.0); Sodium 136 mmol/L (137-145); Triglycerides 156 mg/dL (<150)
[2021-10-08 12:02] LABS: LDL Cholesterol Direct 98 mg/dL
[2021-10-08 12:21] LABS: Prostate Specific Antigen 2.6 ng/mL (< OR = 4.0)
== END 2021-10-08 10:55 | disposition home or self-care (01) ==
LOC: ANHLAB 10:58
PROVIDERS: PCP Internal Medicine; Visit Provider Internal Medicine
DX: E11.65 Type 2 diabetes mellitus with hyperglycemia (principal); Z79.4 Long term (current) use of insulin; I10 Essential (primary) hypertension; Z12.5 Encounter for screening for malignant neoplasm of prostate; E78.5 Hyperlipidemia, unspecified
CPT/HCPCS: 36415; 80053; 80061; 84153; G0103

== ENCOUNTER → 2021-10-14 03:23 | Outpatient (CLI) | payer MEDICARE, SELFPAY ==
[2021-10-15 06:32] LABS: Influenza Control Positive
[2021-10-15 20:56] LABS: SARS-CoV-2 RNA PCR Negative
== END ==
PROVIDERS: PCP Internal Medicine; Visit Provider Internal Medicine
DX: R68.89 Other general symptoms and signs (principal); J06.9 Acute upper respiratory infection, unspecified; Z20.822 Contact with and (suspected) exposure to COVID-19
CPT/HCPCS: 87804; C9803; U0003; U0005

== ENCOUNTER 2022-04-13 10:03 | Outpatient (CLI) | payer MEDICARE, SELFPAY ==
[2022-04-13 10:43] LABS: Alanine Aminotransferase 49 U/L (6-50); Albumin Level 4.5 g/dL (3.5-5.1); Alkaline Phosphatase 89 U/L (38-126); Anion Gap 10 mmol/L (8-16); Aspartate Amino Transferase 40 U/L (17-59); Bilirubin,Total 0.4 mg/dL (0.2-1.3); Blood Urea Nitrogen 18 mg/dL (9-20); Calcium 9.4 mg/dL (8.4-10.2); Carbon Dioxide 30 mmol/L (22-30); Chloride 98 mmol/L (98-107); Cholesterol 159 mg/dL (0-200); Estimated Glomerular Filt Rate > 60; Glucose 168 mg/dL (65-110); HDL Direct 31 mg/dL; Potassium 4.4 mmol/L (3.4-5.0); Sodium 138 mmol/L (137-145); Triglycerides 192 mg/dL (<150)
[2022-04-13 10:55] LABS: LDL Cholesterol Direct 91 mg/dL
[2022-04-13 11:05] LABS: Creatinine Urine 186.7 mg/dL
[2022-04-13 11:48] LABS: MALB Creatinine Ratio 274.8 mg/g (0-30)
== END 2022-04-13 10:04 | disposition home or self-care (01) ==
PROVIDERS: PCP Internal Medicine; Visit Provider Nurse Practitioner Family
DX: E11.65 Type 2 diabetes mellitus with hyperglycemia (principal); I10 Essential (primary) hypertension; E78.5 Hyperlipidemia, unspecified; Z79.4 Long term (current) use of insulin
CPT/HCPCS: 36415; 80053; 80061; 82043

== ENCOUNTER 2022-07-27 10:00 | Outpatient (NON) | payer MEDICARE, SELFPAY | END 2022-07-27 10:01 | disposition home or self-care (01) | LOC: ANHLAB 07-28 11:46 | PROVIDERS: PCP Internal Medicine; Visit Provider Nurse Practitioner | DX: C44.319 Basal cell carcinoma of skin of other parts of face (principal) | CPT/HCPCS: 88305 ==

== ENCOUNTER 2022-08-23 12:42 | Outpatient (NON) | payer MEDICARE, SELFPAY | END 2022-08-23 12:43 | disposition home or self-care (01) | LOC: ANHLAB 12:42 | PROVIDERS: PCP Internal Medicine; Referring Provider Nurse Practitioner; Visit Provider Nurse Practitioner | DX: C44.319 Basal cell carcinoma of skin of other parts of face (principal) | CPT/HCPCS: 88305; 88331 ==

== ENCOUNTER 2022-11-02 09:01 | Outpatient (CLI) | payer MEDICARE, SELFPAY ==
[2022-11-02 10:55] LABS: Alanine Aminotransferase 37 U/L (6-50); Alkaline Phosphatase 113 U/L (38-126); Anion Gap 9 mmol/L (8-16); Aspartate Amino Transferase 36 U/L (17-59); Bilirubin,Total 0.7 mg/dL (0.2-1.3); Blood Urea Nitrogen 18 mg/dL (9-20); Calcium 8.3 mg/dL (8.4-10.2); Carbon Dioxide 25 mmol/L (22-30); Chloride 100 mmol/L (98-107); Cholesterol 133 mg/dL (0-200); Estimated Glomerular Filt Rate > 60; Glucose 217 mg/dL (65-110); HDL Direct 30 mg/dL; Potassium 4.7 mmol/L (3.4-5.0); Sodium 134 mmol/L (137-145); Triglycerides 118 mg/dL (<150)
[2022-11-02 11:06] LABS: LDL Cholesterol Direct 71 mg/dL
[2022-11-02 11:25] LABS: Prostate Specific Antigen 2.7 ng/mL (< OR = 4.0)
== END 2022-11-02 09:02 | disposition home or self-care (01) ==
LOC: ANHLAB 09:03
PROVIDERS: PCP Internal Medicine; Visit Provider Internal Medicine
DX: E78.5 Hyperlipidemia, unspecified (principal); E11.9 Type 2 diabetes mellitus without complications; I10 Essential (primary) hypertension; Z12.5 Encounter for screening for malignant neoplasm of prostate
CPT/HCPCS: 36415; 80053; 80061; 84153; G0103

== ENCOUNTER 2022-11-08 11:22 | Outpatient (CLI) | payer MEDICARE, SELFPAY ==
--- NOTE | ~2022-11-08 | XR_ITS ---
EXAMINATION: XR shoulder RT min 2V DATE: 11/08/2022 11:54 INDICATION: Right shoulder pain and difficulty moving TECHNIQUE: AP internally and externally rotated, AP oblique externally rotated and transscapular Y vi ews of the right shoulder were obtained. COMPARISON: 01/12/2016 FINDINGS: Normal alignment. No fracture. No significant change in mild glenohumeral and acromioclavicular oste oarthritis. Small marginal osteophytes along the inferior glenoid. Soft tissues are unremarkable. Vis ual is portions of the right upper lung are clear. IMPRESSION: No significant change in mild right glenohumeral and acromioclavicular osteoarthritis. Reviewed, dictated and finalized at location A. OOD SCARFER TENDER IMPRESSION: No significant change in mild right glenohumeral and acromioclavicular osteoart hritis.
== END 2022-11-08 11:23 | disposition home or self-care (01) ==
PROVIDERS: PCP Internal Medicine; Visit Provider Internal Medicine
DX: M19.011 Primary osteoarthritis, right shoulder (principal); S46.919A Strain of unspecified muscle, fascia and tendon at shoulder and upper arm level, unspecified arm, initial encounter; X58.XXXA Exposure to other specified factors, initial encounter
CPT/HCPCS: 73030

== ENCOUNTER 2023-01-03 13:21 | Emergency (ER) | payer MEDICARE, SELFPAY ==
[2023-01-03 13:38] VITALS: BP 163/75; PULSE 87; RESP 20; TEMP 36.4; O2SAT 97
--- NOTE | 2023-01-03 13:43 | ED.URI ---
HPI - URI/Sore Throat General Chief Complaint: Upper Respiratory Infection Stated Complaint: SOB/Cough/Sinus/Weakness Source: patient and RN notes reviewed Mode of arrival: ambulatory Limitations: no limitations History of Present Illness HPI Narrative: 67 y/o male with hx DM presented for c/o cough and worsening of chronic vertigo for about 3 weeks. He attributes symptoms to being out in the rain 2 days before symptoms started. States vertigo has been worsening due to the 'use of oxygen' during coughing spells. States he has been stumbling or losing balance more often due to the vertigo. Denies injury. States he spends about 80% of the time in bed. Uses Quad cane. Patient follows with neurology for vertigo for about 13 years, taking diazepam and meclizine. Patient has had 3 negative home covid tests since onset of symptoms. Reports productive clear cough, denies sob, wheezing, sinus pressure/congestion, n/v/d/f/c. Not taking anything for cough. MD elicited complaint: cough Related Data Home Medications Medication Instructions Recorded Confirmed aspirin 325 mg tablet 325 mg PO DAILY 11/19/19 01/03/23 fexofenadine-pseudoephedrine ER 1 tablet PO PRN PRN Ear issues 11/19/19 01/03/23 180 mg-240 mg tablet,ext.release 24 hr (Rosa-D 24 Hour) multivitamin (Daily Multi-Vitamin 1 tablet PO DAILY 11/19/19 01/03/23 tablet) albuterol sulfate 90 mcg/actuation 2 inhalation inhalation Q4-6H PRN 11/26/19 01/03/23 aerosol inhaler Shortness Of Breath cetirizine 10 mg capsule (All Day 10 mg PO DAILY 11/26/19 01/03/23 Allergy (cetirizine)) omega-3 fatty acids-fish oil 360 2 cap PO BID 11/26/19 01/03/23 mg-1,200 mg capsule (Fish Oil) potassium gluconate 595 mg (99 mg) 595 mg PO BID 11/26/19 01/03/23 tablet blood sugar diagnostic (OneTouch 04/19/22 01/03/23 Ultra Test strips) glucose 4 gram chewable tablet 4 g PO Q15M PRN Nasal Congestion 04/19/22 01/03/23 calcium carbonate 600 mg-vitamin 1 tablet PO BID 11/08/22 01/03/23 D3 5 mcg (200 unit) tablet (Calcium 600 + D(3)) insulin regular hum U-500 conc 500 100 unit subcut DAILY 11/08/22 01/03/23 unit/mL(3 mL) subcut pen (Humulin R U-500 (Conc) Insulin Kwikpen) ketorolac 0.5 % eye drops 2 drp EACH EYE DIRECTED 11/08/22 01/03/23 pen needle, diabetic 32 gauge x 11/08/22 01/03/23 (TRUEplus Pen Needle) metformin 1,000 mg tablet 1,000 mg PO BID 01/03/23 01/03/23 omeprazole 40 mg capsule,delayed 40 mg PO DIRECTED 01/03/23 01/03/23 release Allergies Allergy/AdvReac Type Severity Reaction Status Date / Time amoxicillin [From Augmentin] Allergy Mild Hives Verified 01/03/23 13:25 clavulanic acid Allergy Mild Hives Verified 01/03/23 13:25 [From Augmentin] ramipril [From Altace] Allergy Mild Hives Verified 01/03/23 13:25 Review of Systems Review of Systems: CONSTITUTIONAL: Denies malaise, chills, sweats, fever EYES: Denies visual changes, redness, or discharge ENT: Denies rhinorrhea, congestion, sinus pain, otalgia, sore throat CARDIOVASCULAR: Denies chest pain, palpitations, edema RESPIRATORY: Reports cough Denies dyspnea GASTROINTESTINAL: Denies abdominal pain, nausea, vomiting, diarrhea SKIN: Denies rash or itching MUSCULOSKELETAL: Denies myalgia NEUROLOGIC: Reports vertigo denies headache PMFSH Past Medical History Medical History Actinic keratosis Basal cell carcinoma (BCC) of right forearm Cataracts, bilateral Cervical radiculopathy Chronic low back pain COVID-19 Gallstones History of blood transfusion 1977 Hyperlipidemia Hypertension Kidney stones Obesity CHITRA on CPAP Peripheral polyneuropathy Stroke 16yrs ago Type 2 diabetes mellitus with hyperglycemia, with long-term current use of insulin Surgical History Surgical History H/O exploratory laparotomy H/O left inguinal hernia repair History of eye surgery for c
== END 2023-01-03 14:02 | disposition home or self-care (01) ==
PROVIDERS: Emergency Provider Nurse Practitioner Family; PCP Internal Medicine
DX: R42 Dizziness and giddiness (principal); R05.1 Acute cough; E78.5 Hyperlipidemia, unspecified; I10 Essential (primary) hypertension; E11.42 Type 2 diabetes mellitus with diabetic polyneuropathy; Z79.82 Long term (current) use of aspirin; Z79.4 Long term (current) use of insulin; Z85.828 Personal history of other malignant neoplasm of skin; Z87.891 Personal history of nicotine dependence; Z86.73 Personal history of transient ischemic attack (TIA), and cerebral infarction without residual deficits; G47.33 Obstructive sleep apnea (adult) (pediatric); Z86.16 Personal history of COVID-19
CPT/HCPCS: 99213; G0463

== ENCOUNTER 2023-08-29 13:16 | Outpatient (CLI) | payer MEDICARE, SELFPAY ==
[2023-08-29 13:53] LABS: Anion Gap 12 mmol/L (8-16); Blood Urea Nitrogen 14 mg/dL (9-20); Calcium 9.8 mg/dL (8.4-10.2); Carbon Dioxide 28 mmol/L (22-30); Chloride 99 mmol/L (98-107); Estimated Glomerular Filt Rate > 60; Glucose 142 mg/dL (65-110); Potassium 4.6 mmol/L (3.4-5.0); Sodium 139 mmol/L (137-145)
[2023-08-29 14:14] LABS: Free T4 Free Thyroxine 1.18 ng/mL (0.78-2.19); Vitamin D 25 Hydroxy 51.1 ng/mL
[2023-08-29 16:13] LABS: Creatinine Urine 48.1 mg/dL
[2023-08-29 16:17] LABS: MALB Creatinine Ratio 222.9 mg/g (0-30); Microalbumin Urine Random 107.2 mg/L (0-16.7)
== END 2023-08-29 13:17 | disposition home or self-care (01) ==
LOC: ANHLAB 13:17
PROVIDERS: PCP Nurse Practitioner; Visit Provider Nurse Practitioner Family
DX: E11.9 Type 2 diabetes mellitus without complications (principal); E66.01 Morbid (severe) obesity due to excess calories; E78.5 Hyperlipidemia, unspecified; G62.9 Polyneuropathy, unspecified; I10 Essential (primary) hypertension; R80.9 Proteinuria, unspecified
CPT/HCPCS: 36415; 80048; 82043; 82306; 82607; 84439; 84443

== ENCOUNTER 2024-04-20 08:57 | Outpatient (CLI) | payer MEDICARE, SELFPAY | END 2024-04-20 08:58 | disposition home or self-care (01) | LOC: ANHAUDASC 09:00 | PROVIDERS: PCP Nurse Practitioner; Visit Provider Nurse Practitioner | DX: H90.3 Sensorineural hearing loss, bilateral (principal) | CPT/HCPCS: 92557; 92567 ==

== ENCOUNTER 2024-04-20 09:52 | Outpatient (CLI) | payer MEDICARE, SELFPAY ==
[2024-04-20 14:46] LABS: Alanine Aminotransferase 36 U/L (6-50); Albumin Level 4.6 g/dL (3.5-5.1); Alkaline Phosphatase 104 U/L (38-126); Anion Gap 12 mmol/L (4-12); Aspartate Amino Transferase 66 U/L (17-59); Bilirubin,Total 0.7 mg/dL (0.2-1.3); Blood Urea Nitrogen 17 mg/dL (9-20); Calcium 9.9 mg/dL (8.4-10.2); Carbon Dioxide 29 mmol/L (22-30); Chloride 96 mmol/L (98-107); Cholesterol 135 mg/dL (0-200); Estimated Glomerular Filt Rate > 60; Glucose 120 mg/dL (65-110); HDL Direct 29 mg/dL; Potassium 4.7 mmol/L (3.4-5.0); Sodium 137 mmol/L (137-145); Triglycerides 191 mg/dL (<150)
[2024-04-20 14:57] LABS: LDL Cholesterol Direct 75 mg/dL
[2024-04-20 15:15] LABS: Prostate Specific Antigen 2.7 ng/mL (< OR = 4.0)
== END 2024-04-20 09:53 | disposition home or self-care (01) ==
LOC: ANHGOSHLAB 09:53
PROVIDERS: PCP Nurse Practitioner; Visit Provider Nurse Practitioner
DX: E78.5 Hyperlipidemia, unspecified (principal); Z12.5 Encounter for screening for malignant neoplasm of prostate
CPT/HCPCS: 36415; 80053; 80061; 84153; G0103

== ENCOUNTER 2024-11-29 15:07 | Outpatient (CLI) | payer MEDICARE, SELFPAY ==
--- OUTSIDE RECORDS SUMMARY | 2024-11-29 15:12 | XMS_ITS | Clinical Summary ---
Author Organization [facility] Address [address] [place] [phone] Care Team Providers Care Manufacturing Operations Manager Name Role Phone Mani Bush DO Primary Care Provider [phone] Allergies No known active allergies Medications acetaminophen-c odeine (TYLENOL with CODEINE #4) 300-60 mg per tablet 01/04/2021 Active atorvastatin (LIPITOR) 80 mg tablet 12/11/2020 Active Accu-Chek Guide test strips strip USE TO CHECK BLOOD SUGAR FOUR TIMES DAILY 10/08/2020 Active diazePAM (VALIUM) 2 mg tablet Take 2 mg by mouth 4 (four) times a day 11/03/2020 Active lisinopriL (PRINIVIL,ZESTR IL) 10 mg tablet 11/21/2020 Active G-Ppnulk-H5-B12 3-35-2 mg tablet Take 2 tablets by mouth daily 12/15/2020 Active omeprazole (PriLOSEC) 40 mg capsule 12/11/2020 Active Active Problems No known active problems Social History Tobacco Use Types Packs/Day Years Used Date Smoking Tobacco: Never Personal Safety Answer Date Recorded Getting School Help Needed Not on file 12/10 Sex and Gender Information Value Date Recorded Sex Assigned at Not on file Legal Sex Male 7:12 PM 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 SECURITY GUARD Gender Identity Not on file Sexual Orientation Not on file Obstetrics History Last Filed Vital Signs Vital Sign Reading Time Taken Comments Blood Pressure - - Pulse - - Temperature - - Respiratory Rate - - Oxygen Saturation - - Inhaled Oxygen Concentration - - Weight 147 kg (324 lb) 01/06/2021 1:03 PM CDT Height 175.3 cm (5' 9 ) 01/06/2021 1:03 PM CDT Body Mass Index 47.85 01/06/2021 1:03 PM CDT Plan of Treatment Not on file Insurance [facility] MDCR HMO REF Care Teams Manufacturing Operations Manager Relationship Specialty Start Date End Date Mani Bush DO PCP - General Internal Medicine 12/19/20
--- OUTSIDE RECORDS SUMMARY | 2024-11-29 15:12 | XMS_ITS | Referral Summary ---
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 MDCR HMO REF Care Teams Manager E Learning Relationship Specialty Start Date End Date Mani Bush DO PCP - General Internal Medicine 12/19/20
--- OUTSIDE RECORDS SUMMARY | 2024-11-29 15:12 | XMS_ITS | Clinical Summary ---
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 Gender Identity Not on file Sexual Orientation Not on file Plan of Treatment Health Maintenance Due Date Last Done Comments DTAP/TDAP/TD VACCINES (1 - Tdap) 1974 COLORECTAL SCREENING 2000 Colorectal Cancer Screening 2000 FIT-DNA Q 3 years 2000 FIT/FOBT Q 1 year 2000 Flex Sig/CT Colonography Q 5 years 2000 PNEUMOCOCCAL VACCINE 65+ YEARS (1 of 1 - PCV) 10/13/19 06 ZOSTER VACCINE (1 of 2) 2005 INFLUENZA VACCINE (#1) 2024 RSV VACCINE (60+ or ) (1 - 1-dose 75+ series) 2030 Care Teams Resource Management Planner Relationship Specialty Start Date End Date Mani Bush DO [address] [facility] [address] [place] [phone] PCP - General Internal Medicine 10/09/20
[2024-11-29 15:49] LABS: Add Urine Microscopic? YES; Appearance Urine Clear (Clear); Bacteria Urine None Seen /hpf; Bilirubin Urine Negative (Negative); Blood Urine 3+ (Negative); Color Urine Yellow (Yellow); Glucose Urine UA 3+ mg/dL (Negative); Ketones Urine Negative (Negative); Leukocyte Esterase Ur Negative LEU/UL (Negative); Nitrate Urine Negative (Negative); Non Pathogenic Casts 0-2; Protein Urine 1+ mg/dL (Negative); RBC Urine >100 /hpf (0-2); Specific Grav Ur 1.029 (1.001-1.035); Squamous Epithelial Cell Urine None Seen /hpf (Few); Urobilinogen Urine 0.2 mg/dL (<2.0); WBC Urine 0-5 /hpf (0-3)
== END 2024-11-29 15:08 | disposition home or self-care (01) ==
LOC: ANHLAB 15:10
PROVIDERS: PCP Internal Medicine; Visit Provider Internal Medicine
DX: R31.9 Hematuria, unspecified (principal)
CPT/HCPCS: 81001

== ENCOUNTER 2024-11-30 16:21 | Outpatient (CLI) | payer MEDICARE, SELFPAY ==
--- NOTE | ~2024-11-30 | XR_ITS ---
EXAMINATION: XR abdomen/kub 1V DATE: 11/30/2024 16:42 INDICATION: Hematuria, unspecified. TECHNIQUE: A supine view of the abdomen on 2 radiographs was obtained. COMPARISON: CT abdomen and pelvis 02/08/2021 FINDINGS: There are no dilated loops of bowel. There are phleboliths in the pelvis. Surgical clips in the right upper quadrant are likely from cholecystectomy. IMPRESSION: 1. No visible urolithiasis. Reviewed, dictated and finalized at location A. UNICATION EQUIPMENT REPAIRER IMPRESSION: 1. No visible urolithiasis.
--- OUTSIDE RECORDS SUMMARY | 2024-11-30 16:24 | XMS_ITS | Referral Summary ---
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
--- OUTSIDE RECORDS SUMMARY | 2024-11-30 16:24 | XMS_ITS | Clinical Summary ---
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
--- OUTSIDE RECORDS SUMMARY | 2024-11-30 16:24 | XMS_ITS | Clinical Summary ---
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
== END 2024-11-30 16:22 | disposition home or self-care (01) ==
PROVIDERS: PCP Internal Medicine; Visit Provider Internal Medicine
DX: R31.9 Hematuria, unspecified (principal)
CPT/HCPCS: 74018

== ENCOUNTER 2025-01-15 08:14 | Outpatient (CLI) | payer MEDICARE, SELFPAY ==
--- NOTE | ~2025-01-15 | CT_ITS ---
CT of the Abdomen and Pelvis: Indication: Gross hematuria Technique: 2.5 mm axial scans were obtained through the abdomen and pelvis prior to and following in travenous administration of 130 cc of Omnipaque 350. Dose reduction technique was used on this scan b y utilizing automated exposure control and iterative reconstruction technique. The dose-length produc t (DLP) was 4144.98 mGy-cm. COMPARISON: 02/08/2021 Findings: Scans through the lung bases are unremarkable. The liver, spleen, pancreas, and adrenal glands are within normal limits. Cholecystectomy clips are p resent. Small bilateral nonobstructing stones are present, measuring up to 3 mm in greatest size. No ureteral stone or hydronephrosis on either side. No evidence of aortic aneurysm. No lymphadenopathy. No bowel obstruction or bowel wall thickening. There is no evidence to suggest acute appendicitis. Sm all fat-containing umbilical hernia. Images through the pelvis were performed. Prostate gland markedly enlarged. Urinary bladder unremarka ble. Small fat-containing right inguinal hernia present. Impression: Small bilateral nonobstructing renal stones. Markedly enlarged prostate gland. Small fat-containing umbilical and right inguinal hernias. Reviewed, dictated and finalized at location . Impression: Small bilateral nonobstructing renal stones. Markedly enlarged prostate gland. Small fat-containing umbilical and right inguinal hernias.
--- OUTSIDE RECORDS SUMMARY | 2025-01-15 08:20 | XMS_ITS | Clinical Summary ---
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
--- OUTSIDE RECORDS SUMMARY | 2025-01-15 08:20 | XMS_ITS | Clinical Summary ---
Author Organization [employer] [address] [facility] Address [address] [place] [address] Care Team Providers Care Special Events Assistant Name Role Phone Mani Bush DO Primary Care Provider [phone] Social History Tobacco Use Types Packs/Day Years Used Date Smoking Tobacco: Never Assessed Sex and Gender Information Value Date Recorded Sex Assigned at Not on file Legal Sex Male 10:17 AM RN COMPLIANCE Gender Identity Not on file Sexual Orientation Not on file Plan of Treatment Health Maintenance Due Date Last Done Comments DTAP/TDAP/TD VACCINES (1 - Tdap) 1974 COLORECTAL SCREENING 2000 Colorectal Cancer Screening 2000 FIT-DNA Q 3 years 2000 FIT/FOBT Q 1 year 2000 Flex Sig/CT Colonography Q 5 years 2000 PNEUMOCOCCAL VACCINE 50+ YEARS (1 of 1 - PCV) 10/13/19 06 ZOSTER VACCINE (1 of 2) 2005 INFLUENZA VACCINE (#1) 2024 RSV VACCINE (60+ or ) (1 - 1-dose 75+ series) 2030 Care Teams Special Events Assistant Relationship Specialty Start Date End Date Mani Bush DO [address] [facility] [address] [place] [address] PCP - General Internal Medicine 10/09/20
--- OUTSIDE RECORDS SUMMARY | 2025-01-15 08:20 | XMS_ITS | Referral Summary ---
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
[2025-01-15 08:42] LABS: Estimated Glomerular Filt Rate > 60
== END 2025-01-15 08:15 | disposition home or self-care (01) ==
PROVIDERS: PCP Internal Medicine; Visit Provider Urology
DX: N20.0 Calculus of kidney (principal); K42.9 Umbilical hernia without obstruction or gangrene; K40.90 Unilateral inguinal hernia, without obstruction or gangrene, not specified as recurrent
CPT/HCPCS: 74178; Q9967

== ENCOUNTER 2025-03-22 11:42 | Outpatient (CLI) | payer MEDICARE, SELFPAY ==
--- OUTSIDE RECORDS SUMMARY | 2025-03-22 11:45 | XMS_ITS | Referral Summary ---
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 MDCR HMO REF Care Teams Obstetrician Gynecologist Relationship Specialty Start Date End Date Mani Bush DO PCP - General Internal Medicine 12/19/20
--- OUTSIDE RECORDS SUMMARY | 2025-03-22 11:45 | XMS_ITS | Clinical Summary ---
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
--- OUTSIDE RECORDS SUMMARY | 2025-03-22 11:45 | XMS_ITS | Clinical Summary ---
Author Organization [facility] Address [address] [place] [phone] Care Team Providers Care Binder Coverstitch Name Role Phone Mani Bush DO Primary Care Provider [phone] Allergies No known active allergies Medications acetaminophen-c [...] (PRINIVIL,ZESTR IL) 10 mg tablet 11/21/2020 Active F-Ybprwt-P3-B12 3-35-2 mg tablet Take 2 tablets by [...] on file Legal Sex Male 7:12 PM TRACTION POWER ENGINEER Gender Identity Not on file Sexual Orientation [...] Plan of Treatment Not on file Insurance [facility] MDCR HMO REF Care Teams Binder Coverstitch Relationship Specialty Start Date End Date Mani Bush DO PCP - General Internal Medicine 12/19/20
[2025-03-22 12:42] LABS: Alanine Aminotransferase 28 U/L (6-50); Albumin Level 4.5 g/dL (3.5-5.1); Alkaline Phosphatase 106 U/L (38-126); Anion Gap 11 mmol/L (4-12); Aspartate Amino Transferase 31 U/L (17-59); Bilirubin,Total 0.5 mg/dL (0.2-1.3); Blood Urea Nitrogen 17 mg/dL (9-20); Carbon Dioxide 30 mmol/L (22-30); Chloride 100 mmol/L (98-107); Cholesterol 229 mg/dL (0-200); Estimated Glomerular Filt Rate > 60; Glucose 91 mg/dL (65-110); HDL Direct 31 mg/dL; Potassium 4.4 mmol/L (3.4-5.0); Sodium 141 mmol/L (137-145); Total Protein 7.9 g/dL (6.3-8.2); Triglycerides 179 mg/dL (<150)
[2025-03-22 12:53] LABS: LDL Cholesterol Direct 144 mg/dL
[2025-03-22 12:56] LABS: Vitamin D 25 Hydroxy 34.3 ng/mL
[2025-03-22 12:58] LABS: Free T4 Free Thyroxine 0.87 ng/dL (0.78-2.19)
[2025-03-22 13:43] LABS: Creatinine Urine 123.2 mg/dL
[2025-03-22 13:47] LABS: MALB Creatinine Ratio 94.8 mg/g (0-30); Microalbumin Urine Random 116.8 mg/L (0-16.7)
== END 2025-03-22 11:43 | disposition home or self-care (01) ==
PROVIDERS: PCP Internal Medicine; Visit Provider Nurse Practitioner Family
DX: E78.5 Hyperlipidemia, unspecified (principal); I10 Essential (primary) hypertension; E78.49 Other hyperlipidemia; E11.9 Type 2 diabetes mellitus without complications; E11.65 Type 2 diabetes mellitus with hyperglycemia; Z79.4 Long term (current) use of insulin; E66.9 Obesity, unspecified; E66.01 Morbid (severe) obesity due to excess calories; E55.9 Vitamin D deficiency, unspecified
CPT/HCPCS: 36415; 80053; 80061; 82043; 82306; 82607; 84439; 84443

== ENCOUNTER 2025-04-15 14:08 | Outpatient (CLI) | payer MEDICARE, SELFPAY ==
--- NOTE | ~2025-04-15 | US_ITS ---
US soft tissue UE LT 04/15/2025 14:23 Indication: Palpable area left shoulder Procedure: High-resolution Limited soft tissue ultrasound in the area of palpable concern Comparison: No prior studies for comparison. Findings: Normal heterogeneous echotexture without focal solid or cystic mass. Impression: 1: Normal heterogeneous echotexture without focal solid or cystic mass. Reviewed, dictated and finalized at location A. Impression: 1: Normal heterogeneous echotexture without focal solid or cystic mass.
== END 2025-04-15 14:09 | disposition home or self-care (01) ==
LOC: GOSHIMG 14:09
PROVIDERS: PCP Internal Medicine; Visit Provider Internal Medicine
DX: R22.32 Localized swelling, mass and lump, left upper limb (principal)
CPT/HCPCS: 76882

== ENCOUNTER 2025-09-27 12:30 | Outpatient (CLI) | payer MEDICARE, SELFPAY ==
--- OUTSIDE RECORDS SUMMARY | 2025-09-27 12:35 | XMS_ITS | Clinical Summary ---
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
--- OUTSIDE RECORDS SUMMARY | 2025-09-27 12:35 | XMS_ITS | Clinical Summary ---
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
[2025-09-27 13:33] LABS: Alanine Aminotransferase 39 U/L (6-50); Albumin Level 4.5 g/dL (3.5-5.1); Alkaline Phosphatase 112 U/L (38-126); Anion Gap 9 mmol/L (4-12); Aspartate Amino Transferase 38 U/L (17-59); Bilirubin,Total 0.6 mg/dL (0.2-1.3); Blood Urea Nitrogen 14 mg/dL (9-20); Calcium 9.8 mg/dL (8.4-10.2); Carbon Dioxide 28 mmol/L (22-30); Chloride 97 mmol/L (98-107); Cholesterol 149 mg/dL (0-200); Estimated Glomerular Filt Rate > 60; Glucose 266 mg/dL (65-110); HDL Direct 36 mg/dL; Potassium 5.1 mmol/L (3.4-5.0); Sodium 134 mmol/L (137-145); Total Protein 7.9 g/dL (6.3-8.2); Triglycerides 212 mg/dL (<150)
[2025-09-27 14:16] LABS: Prostate Specific Antigen 1.1 ng/mL (< OR = 4.0)
== END 2025-09-27 12:31 | disposition home or self-care (01) ==
PROVIDERS: PCP Nurse Practitioner; Referring Provider Internal Medicine; Visit Provider Nurse Practitioner Family
DX: I10 Essential (primary) hypertension (principal); E78.49 Other hyperlipidemia; E11.65 Type 2 diabetes mellitus with hyperglycemia; Z79.4 Long term (current) use of insulin; E66.9 Obesity, unspecified; E66.01 Morbid (severe) obesity due to excess calories; Z12.5 Encounter for screening for malignant neoplasm of prostate
CPT/HCPCS: 36415; 80053; 80061; 82306; 84153; G0103